=== PATIENT | female | born 2000 ===

== ENCOUNTER 2020-03-24 16:57 | Emergency (ER) | payer MEDICAID, SELFPAY ==
[~2020-03-24] VITALS: Ht 154.9 cm; Wt 50.8 kg
[2020-03-24 16:59] VITALS: BP 111/79; Ht 154.9 cm; Wt 50.8 kg
== END 2020-03-24 17:37 | disposition home or self-care (01) ==
LOC: ED 16:57
DX: U07.1 COVID-19 (principal)
CPT/HCPCS: U0003